=== PATIENT | male | born 1965 | race Two or more races ===

== ENCOUNTER 2024-05-30 16:58 | Emergency (ER) | payer MEDICAID ==
[~2024-05-30] VITALS: Ht 162.6 cm; Wt 82.6 kg
[2024-05-30 18:41] VITALS: BP 138/69; TEMP 98.3; O2SAT 98
== END 2024-05-30 18:41 | disposition home or self-care (01) ==
LOC: ER 17:08
DX: R00.2 Palpitations (principal); I10 Essential (primary) hypertension; Z88.0 Allergy status to penicillin